=== PATIENT | female | born 1995 | race Caucasian/White ===

== ENCOUNTER → 2019-02-13 | Outpatient (CLI) | payer MEDICARE, OTHER ==
[~2019-02-13] MED LIST: ALBU.083IS; ALBU.083IS IH; ALBU90OI6 INH; AMOX500 PO; AMOX875 PO; ARIP10 PO; AZIT200SU PO; AZIT250 PO; BENADRYL; BENZ.5 PO; BUPRENORPHINE HC8 MG SL; CITA20 PO; CLOM50 PO; CLOM50A PO; CLON.1 PO; CLON.5; CLON.5 PO; CLON1; CLON1 PO; CLON2 PO; CODACE30 PO; CODACEE120 PO; CRUTCH USE; CYAN100 PO; DIASTAT ACUDIAL PO; DIAZ5; DIPATR PO; DIVA500ER PO; ERYT.5TO OD; ETHO250; FAMO20 PO; FLUT44OIA IH; FLUV50; FLUV50 PO; HYDACE25S PR; HYDACE5 PO; HYDGUAL120 PO; HYDPAM25 PO; IBUP400 PO; LAMO100; LAMO100 PO; LAMO25 PO; LAMO5; LAMO50; LAMO50 PO; LEVE500; LEVE500 PO; LIDO2L TOP; LORA10; Lamictal150 MG PO; MECL25 PO; MELA3 PO; NAPR550 PO; NEOCOLOTSU OT; OLAN5 PO; OLAN5A MM; OMEP20ER PO; ORTHO TRI-CYCL1 EACH PO; OXYB5 PO; OXYC5 PO; PRAZ1 PO; PRED20 PO; PROM25 PO; PYRI100 PO; Pepcid40 MG PO; QUET25 PO; RISP1 PO; RIZA PO; ROBITUSSIN DM; RXCODACESY PO; RXCODACET PO; RXHYDGUAS PO; RXNEOPOLHC AD; RXONDA4ODT MM; SULTRIEL PO; TOPI100 PO; TOPI50 PO; TRAZ100 PO; TRAZ150T57 PO; Zofran Odt8 MG SL; [UNRECOGNIZED DRUG - OTHER] PO; [UNRECOGNIZED DRUG - REMARK]
[2019-02-13 14:10] LABS: U Amphetamine Screen Not Detected; U Barbituate Screen Not Detected; U Benzodiazapine Screen Not Detected; U Buprenorphine Screen DETECTED; U Cannabinoids Screen Not Detected; U Cocaine Screen Not Detected; U Methadone Screen Not Detected; U Methamphetamine Screen Not Detected; U Opiates Screen Not Detected; U Oxycodone Screen Not Detected; U Phencyclidine Screen Not Detected; U Propoxyphene Screen Not Detected
== END ==
LOC: LAB SHORT 09:40 → LAB 09:40
PROVIDERS: Registered Nurse
DX: F42.9 Obsessive-compulsive disorder, unspecified (principal); Z79.899 Other long term (current) drug therapy
CPT/HCPCS: G0480

== ENCOUNTER 2023-07-25 04:36 | Emergency (ER) | payer MEDICARE, OTHER ==
[~2023-07-25] VITALS: Ht 165.1 cm; Wt 106.6 kg
[2023-07-25 06:03] LABS: BASOPHILS ABSOLUTE AUTO 0.02 K/mm3 (0.00-0.23); BASOPHILS PERCENT AUTO 0 % (0-2); EOSINOPHILS ABSOLUTE AUTO 0.13 K/mm3 (0.00-0.68); EOSINOPHILS PERCENT AUTO 2 % (0-6); Hemoglobin 14.6 g/dL (11.5-16.0); IMMATURE GRAN ABSOLUTE AUTO 0.01 K/mm3 (0.00-0.10); IMMATURE GRAN PERCENT AUTO 0 % (0-1); LYMPHOCYTES ABSOLUTE AUTO 2.12 K/mm3 (0.84-5.20); LYMPHOCYTES PERCENT AUTO 38 % (21-46); MONOCYTES ABSOLUTE AUTO 0.29 K/mm3 (0.16-1.47); MONOCYTES PERCENT AUTO 5 % (4-13); Mean Corpuscular HGB 29.3 pg (26.0-34.0); Mean Corpuscular HGB Conc 35.6 g/dL (31.5-36.5); Mean Corpuscular Volume 82 fL (80-100); NEUTROPHILS ABSOLUTE AUTO 3.07 K/mm3 (1.96-9.15); NEUTROPHILS PERCENT AUTO 54 % (41-73); Platelet Count 168 K/mm3 (150-400); RDW Coefficient Variation 13.2 % (11.7-14.2); RDW Standard Deviation 38.9 fL (35.1-46.3); Red Blood Cell Count 4.99 M/mm3 (3.80-5.20); White Blood Cell Count 5.64 K/mm3 (4.00-11.30)
[2023-07-25 06:11] LABS: Albumin, Blood 3.7 g/dL (3.4-5.0); Bilirubin, Total 0.4 mg/dL (0.1-1.0); Bun/Creatinine Ratio 14.2 (12.0-20.0); Calcium, Blood 8.7 mg/dL (8.5-10.1); Creatinine, Blood 0.98 mg/dL (0.40-1.00); Globulin, Blood 3.6 g/dL (2.2-4.0); Potassium, Blood 3.7 mmol/L (3.5-5.5); Total Protein, Blood 7.3 g/dL (6.4-8.2)
[2023-07-25 07:14] LABS: Acetaminophen, Random <2.0 ug/mL (10.0-30.0)
[2023-07-25 08:04] VITALS: BP 123/67
== END 2023-07-25 08:00 | disposition home or self-care (01) ==
LOC: ER 04:36
PROVIDERS: Emergency Medicine
DX: G40.909 Epilepsy, unspecified, not intractable, without status epilepticus (principal); R74.01 Elevation of levels of liver transaminase levels; F43.10 Post-traumatic stress disorder, unspecified; F42.9 Obsessive-compulsive disorder, unspecified; Z79.899 Other long term (current) drug therapy; Z88.5 Allergy status to narcotic agent
CPT/HCPCS: 80053; 83690; 84703; 85025; 99285; G0480